=== PATIENT | female | born 1975 | race Hispanic/Latino ===

== ENCOUNTER 2020-12-02 19:48 | Observation (INO) | payer MEDICARE ==
[~2020-12-02] VITALS: Ht 132.1 cm; Wt 67.8 kg
[2020-12-02] MEDS ORDERED: ONDANSETRON 4MG INJ IVP ONE (20:30)
[2020-12-02] MEDS ORDERED: LACTATED RINGERS 1000ML 1,000 ML IV ONE (20:30)
[2020-12-02] MEDS ORDERED: FAMOTIDINE 20MG TAB PO ONE (20:30)
[2020-12-02 20:59] LABS: BASOPHILS % (AUTO) 0.5 % (0.0-5.0); EOSINOPHILS % (AUTO) 0.4 % (0.0-8.0); HEMATOCRIT 37.9 % (36-48); LYMPHOCYTES % (AUTO) 6.8 % (21.0-51.0); MEAN CORPUSCULAR HEMOGLOBIN 33.2 pg (27.0-33.0); MEAN CORPUSCULAR HGB CONC 33.2 g/dL (32.0-36.0); MONOCYTES % (AUTO) 2.7 % (3.0-13.0); NEUTROPHILS % (AUTO) 89.3 % (40.0-77.0); PLATELET COUNT (AUTO) 191 K/uL (130-400); RED BLOOD CELL COUNT(AUTO) 3.79 MIL/uL (4.00-5.50); RED CELL DISTRIBUTION WIDTH 12.8 % (11.0-15.5); WHITE BLOOD COUNT (AUTO) 7.5 K/uL (4.8-10.8)
[2020-12-02 21:09] LABS: CREATININE 0.9 mg/dL (0.5-1.5); POTASSIUM 3.6 mmol/L (3.5-5.1)
[2020-12-02 21:11] LABS: PROTHROMBIN TIME 10.9 SEC (9.6-11.6)
[2020-12-02 21:14] LABS: ALBUMIN 2.9 g/dL (3.5-5.0); BILIRUBIN,TOTAL 0.2 mg/dL (0.2-1.0); TOTAL PROTEIN, SERUM 7.3 g/dL (6.0-8.3)
[2020-12-02] MEDS ORDERED: IOHEXOL 350 MG/ML 100ML INFUS..BTL IV ONE (22:00)
[2020-12-02 23:29] VITALS: BP 144/73
[2020-12-03] VITALS (8 sets, daily range): BP systolic 91–130; BP diastolic 40–85
[2020-12-03] MEDS ORDERED: LEVE250T PO ×2 (02:22)
[2020-12-03] MEDS ORDERED: PRAV10TA39 PO (02:22)
[2020-12-03] MEDS ORDERED: LEVO50TA4 PO (02:24)
[2020-12-03] MEDS ORDERED: ONDANSETRON 4MG INJ IV PRN (03:00)
[2020-12-03] MEDS ORDERED: ACETAMINOPHEN 325 MG TAB PO PRN ×2 (03:00)
[2020-12-03] MEDS ORDERED: 0.9%NACL 100ML 100 ML ONE (03:52)
[2020-12-03] MEDS ORDERED: PANTOPRAZOLE 40 MG/VIAL ONE (03:52)
[2020-12-03 06:53] LABS: BASOPHILS % (AUTO) 0.6 % (0.0-5.0); EOSINOPHILS % (AUTO) 0.4 % (0.0-8.0); HEMATOCRIT 38.2 % (36-48); LYMPHOCYTES % (AUTO) 17.8 % (21.0-51.0); MEAN CORPUSCULAR HEMOGLOBIN 31.6 pg (27.0-33.0); MEAN CORPUSCULAR HGB CONC 32.2 g/dL (32.0-36.0); MEAN CORPUSCULAR VOLUME 98.2 fL (79-99); MONOCYTES % (AUTO) 3.9 % (3.0-13.0); NEUTROPHILS % (AUTO) 76.9 % (40.0-77.0); PLATELET COUNT (AUTO) 222 K/uL (130-400); RED BLOOD CELL COUNT(AUTO) 3.89 MIL/uL (4.00-5.50); RED CELL DISTRIBUTION WIDTH 12.9 % (11.0-15.5); WHITE BLOOD COUNT (AUTO) 5.1 K/uL (4.8-10.8)
[2020-12-03 07:08] LABS: ALBUMIN 3.1 g/dL (3.5-5.0); BILIRUBIN,TOTAL 0.4 mg/dL (0.2-1.0); CREATININE 0.9 mg/dL (0.5-1.5); POTASSIUM 3.8 mmol/L (3.5-5.1); TOTAL PROTEIN, SERUM 7.6 g/dL (6.0-8.3)
[2020-12-03 07:16] LABS: HEMOGLOBIN A1C 5.1 % (4.0-6.0)
[2020-12-03] MEDS ORDERED: PHARMACY COMMUNICATION MISC SCH (08:00)
[2020-12-03] MEDS ORDERED: COMPOUND IV MISC 1 EACH IVSOLN MISC PRN (08:00)
[2020-12-03] MEDS: PANTOPRAZOLE 40MG INJ 80 MG in 0.9%NACL 100ML 100 ML IV SCH (10:30)
[2020-12-03] MEDS: LEVETIRACETAM 250 MG in 0.9%NACL 100ML 100 ML IV SCH (10:35)
[2020-12-03] MEDS ORDERED: PEG 3350/NA SULF,BICARB,CL/KCL 4000 ML SOLN PO SCH (15:00)
[2020-12-03] MEDS ORDERED: LEVETIRACETAM 500 MG in 0.9%NACL 100ML 100 ML IV SCH (21:00)
[2020-12-04] VITALS (19 sets, daily range): BP systolic 83–163; BP diastolic 46–90
[2020-12-04 06:15] LABS: EOSINOPHILS % (AUTO) 1.8 % (0.0-8.0); HEMATOCRIT 35.5 % (36-48); LYMPHOCYTES % (AUTO) 23.4 % (21.0-51.0); MEAN CORPUSCULAR HEMOGLOBIN 32.5 pg (27.0-33.0); MEAN CORPUSCULAR VOLUME 98.6 fL (79-99); MONOCYTES % (AUTO) 5.7 % (3.0-13.0); NEUTROPHILS % (AUTO) 67.8 % (40.0-77.0); PLATELET COUNT (AUTO) 202 K/uL (130-400); RED CELL DISTRIBUTION WIDTH 12.9 % (11.0-15.5); WHITE BLOOD COUNT (AUTO) 3.8 K/uL (4.8-10.8)
[2020-12-04 06:34] LABS: ALBUMIN 2.8 g/dL (3.5-5.0); BILIRUBIN,TOTAL 0.5 mg/dL (0.2-1.0); CREATININE 0.8 mg/dL (0.5-1.5); POTASSIUM 3.5 mmol/L (3.5-5.1); TOTAL PROTEIN, SERUM 6.8 g/dL (6.0-8.3)
[2020-12-04] MEDS ORDERED: PROPOFOL 10 MG/ML 20ML VIAL IV ONE (07:33)
[2020-12-04] MEDS ORDERED: GLYCOPYRROLATE 1 MG/5 ML SYRINGE ONE (07:34)
[2020-12-04] MEDS ORDERED: EPHEDRINE SULFATE 50 MG/ML AMPULE ONE (07:48)
[2020-12-04] MEDS: LEVETIRACETAM 250 MG in 0.9%NACL 100ML 100 ML IV SCH (08:42)
[2020-12-04] MEDS: PANTOPRAZOLE 40MG INJ 80 MG in 0.9%NACL 100ML 100 ML IV SCH (09:45)
[2020-12-04] MEDS ORDERED: CIPR-278 PO (17:51)
[2020-12-04] MEDS ORDERED: METR-152 PO (17:51)
== END 2020-12-04 18:50 | disposition home or self-care (01) ==
LOC: EDH 19:59 → EDHIP 12-03 02:57 → INTOOBSV 12-03 02:57 → 3BH 12-03 08:21
PROVIDERS: ADMIT Internal Medicine; ATTEND Internal Medicine
DX: K92.2 Gastrointestinal hemorrhage, unspecified (principal); K64.8 Other hemorrhoids; M47.815 Spondylosis without myelopathy or radiculopathy, thoracolumbar region; E78.00 Pure hypercholesterolemia, unspecified; G40.909 Epilepsy, unspecified, not intractable, without status epilepticus; Q90.9 Down syndrome, unspecified; Z79.899 Other long term (current) drug therapy; Z86.73 Personal history of transient ischemic attack (TIA), and cerebral infarction without residual deficits
CPT/HCPCS: 36415 ×3; 45380; 74177; 80053 ×3; 82270; 83036; 83690; 85025 ×3; 85610; 85651; 85730; 86140; 96365; 96366 ×2; 96375; 96376 ×2; 99285; A4215; A4222; A4223; A4606; A4620; A4657; C9113 ×3; G0378 ×38; J1953 ×3; J2405; J2704; J3490 ×2; J7030; J7120; Q9967